=== PATIENT | female | born 1995 ===

== ENCOUNTER 2016-12-24 18:42 | Emergency (ER) | payer OTHER ==
[2016-12-24 19:22] VITALS: BP 127/77
--- NOTE | 2016-12-24 21:03 | UC ---
Abdominal Pain Female HPI - HPI Summary HPI Summary: 21 female presents with complaints of abdominal pain in the epigastric RUQ and LUQ area that has been ongoing for the past 2 weeks. Patient admits to blood in stool that has recently resolved. Denies nausea, vomiting, constipation, diarrhea, and frequent burping. Unable to describe the pain. Denies heart burn or history of acid reflux. Does attend school and is exposed to stress. No significant PMH. Has not tried taking any medications. Pain is intermittent and comes and goes, sometimes is worse after eating. Has not related it to anything. Denies lower abdominal pain and urinary symptoms. Occasionally drink alcohol. - History of Current Complaint Chief Complaint: UCAbdominalPain Stated Complaint: STOMACH PAIN Time Seen by Provider: 12/24/16 20:37 Hx Obtained From: Patient ?: No Onset/Duration: Sudden Onset Timing: Intermittent Episodes Lasting: - a few minutes to hours Severity Initially: Mild Severity Currently: Mild Pain Intensity: 5 Pain Scale Used: 0-10 Numeric Location: Discrete At: RUQ, Discrete At: LUQ, Epigastric Radiates: Yes Radiates to: Back Character: Aching, Sharp Aggravating Factor(s): Nothing Alleviating Factor(s): Nothing Associated Signs and Symptoms: Positive: Blood in Stool - has ~ 2 weeks ago has since resolved, Nausea. Negative: Urinary Symptoms, Decreased Appetite, Vaginal Bleeding Allergies/Adverse Reactions: Allergies Allergy/AdvReac Type Severity Reaction Status Date / Time No Known Allergies Allergy Verified 12/24/16 19:21 Home Medications: Home Medications Levonorgestrel (IUD) (NF) [Mirena (NF)] 20 mcg IU DAILY 12/24/16 [History Confirmed 12/24/16] PMH/Surg Hx/FS Hx/Imm Hx Endocrine History Of: Denies: Diabetes Respiratory History Of: Denies: Asthma - Surgical History Surgical History: None - Family History Known Family History: Positive: Cardiac Disease, Diabetes - Social History Alcohol Use: Occasionally Substance Use Type: None Smoking Status (MU): Never Smoked Tobacco Review of Systems Constitutional: Negative Skin: Negative Eyes: Negative ENT: Negative Respiratory: Negative Cardiovascular: Negative Gastrointestinal: Abdominal Pain Genitourinary: Negative Motor: Negative Neurovascular: Negative Musculoskeletal: Negative Neurological: Negative Psychological: Negative All Other Systems Reviewed And Are Negative: Yes Physical Exam Triage Information Reviewed: Yes Appearance: Well-Appearing - sitting in chair, No Pain Distress, Well-Nourished Vital Signs: Initial Vital Signs Temp 99.4 F 12/24/16 19:15 Pulse 96 12/24/16 19:15 Resp 16 12/24/16 19:15 BP 127/77 12/24/16 19:15 Pulse Ox 100 12/24/16 19:15 Vital Signs Reviewed: Yes Eyes: Positive: Conjunctiva Clear ENT: Positive: Hearing grossly normal, Pharynx normal, TMs normal Dental: Negative: Percussion Tenderness @, Cervical Lymphadenopathy Neck: Positive: Supple, Nontender, No Lymphadenopathy Respiratory: Positive: Chest non-tender, Lungs clear, Normal breath sounds, No respiratory distress Cardiovascular: Positive: RRR, No Murmur, Pulses Normal, Brisk Capillary Refill Abdomen Description: Positive: No Organomegaly, Soft, Other: - mild tenderness on palpation of epigastric area/ upper quadrants. Negative: Bruit, CVA Tenderness (R), CVA Tenderness (L), Distended, Guarding, Hepatomegaly, McBurney' s Point Tenderness, Peritoneal Signs, Splenomegaly Bowel Sounds: Positive: Present Musculoskeletal: Positive: Strength Intact, ROM Intact, No Edema Neurological: Positive: Alert, Muscle Tone Normal Psychological Exam: Normal Skin Exam: Normal Abd Pain Female Course/Dx - Course Course Of Treatment: patient appears to be experiencing GERD/acid reflux however due to other possibilites and vague symptoms encouraged to go to ER for further evaluation such as blood work and imaging. Patient refused ambulance transport at this time and stated she will go in the morning. Due to no current pain unable to try PPI/ H2 osmin to see if it helps. Instructed to try taking tums or OTC acid reflux medication to see if it relieves the pain. Educated on foods to avoid and how to prevent GERD. - Differential Dx/Diagnosis Differential Diagnosis: Appendicitis, Constipation, Gall Bladder Disease, Irritable Bowel Syndrome, Urinary Tract Infection, Other - GERD Provider Diagnoses: abdominal pain possibly related to GERD, however unable to r /o other etiologies without imaging and bloodwork at this time Discharge - Discharge Plan Condition: Stable Disposition: AGAINST MEDICAL ADVICE Patient Education Materials: Gastroesophageal Reflux Disease (ED), Abdominal Pain (ED) Referrals: Non Staff,Doctor [Primary Care Provider] - Additional Instructions: If symptoms worsen or do not improve strongly encourage having further work up at ER or primary care provider. Try taking Tums or over the counter acid reflux medication when you have the pain to see if it helps. Avoid greasy, spicy, acidic foods and alcohol to prevent symptoms. Do not lay down after eating. Strongly recommend further evaluation to rule out other causes of your pain.
== END 2016-12-24 21:09 | disposition left against medical advice (07) ==
LOC: UCCORT 18:42
DX: R10.13 Epigastric pain (principal); R10.11 Right upper quadrant pain; R10.12 Left upper quadrant pain
CPT/HCPCS: 87077; 87086; 87186; 99202; G0463